=== PATIENT | female | born 1990 | race Caucasian/White ===

== ENCOUNTER 2019-01-07 12:37 | Observation (INO) | payer OTHER, SELFPAY ==
[2019-01-07] VITALS (18 sets, daily range): BP systolic 122–151; BP diastolic 77–118; PULSE 56–93; RESP 7–17; TEMP 36.1–37.3; O2SAT 85–100; BMI 27.4; BMI 26.9
--- NOTE | 2019-01-07 | PATH_ITS ---
[facility] Accession Number: [id number] . 01 Material submitted: . appendix - APPENDIX . 02 Diagnosis: Appendix: Acute appendicitis. MRV/01/09/2019 . 02 Electronically signed: . Dwight Cotto MD, Pathologist NPI- [id number] . 01 Gross description: . Received in formalin, labeled with the patient's name and appendix, is a 7 cm in length by 0.8 cm in diameter intact mendieta-brown appendix. The attached mendieta-brown mesoappendix measures 5.0 x 1.9 x 1.5 cm. The serosa is focally hemorrhagic and no perforation is noted. Sectioning reveals a lumen measuring 0.3 cm in maximal diameter with mendieta-brown mucosa. No fecalith is identified within the lumen. The resection margin is inked black, and players club representative sections are submitted as follows: A1 - bisected tip, cross-section of proximal margin, and additional cross-sections. (NEREYDA:[id number]) /MRV . 02 Pathologist provided ICD-10: K35.80 . 02 CPT . 539864 Performed at: 01 [facility] [address] [facility], [place], [place] [id number] MD Leonides De Guzman MD Phone: [phone] Performed at: 02 [facility] [address] [place], [place] [id number] MD Sharona Franco MD Phone: [phone]
[2019-01-07 13:02] LABS: Bacteria Urine None Seen
[2019-01-07 13:19] LABS: RBC Urine 5-10/HPF (0-5/HPF)
[2019-01-07 13:20] LABS: Culture Indicated Urine Cult Not Indicated; Squamous Epithelial Cell Urine 0-1 /HPF (0-5/HPF); WBC Urine 0-1/HPF (0-5/HPF)
--- NOTE | 2019-01-07 13:20 | ED_ITS ---
HPI - Abdominal Pain General Chief Complaint: Abdominal Pain Stated Complaint: rt side abominal pain Time Seen by Provider: 01/07/19 13:20 Source: patient Mode of arrival: ambulatory Limitations: no limitations History of Present Illness HPI narrative: Otherwise healthy 28-year-old female here for evaluation of right lower quadrant abdominal pain. Patient states that it started with right upper quadrant abdominal pain 2 days ago. She initially thought that it was ?gas? Has had a bowel movement since then which did not change any of her pain. No urinary symptoms. has very irregular menstrual cycles and is not on any sort of control. No prior abdominal surgeries. No vomiting. No fevers. Related Data Home Medications Medication Instructions Recorded Confirmed No Known Home Medications 01/07/19 01/07/19 Allergies Allergy/AdvReac Type Severity Reaction Status Date / Time No Known Drug Allergies Allergy Verified 01/07/19 12:57 Review of Systems Constitutional Denies body ache(s), Denies chills and Denies fever(s) Cardiovascular Denies chest pain and Denies dyspnea Respiratory Denies dyspnea Gastrointestinal Gastrointestinal: Reports abdominal pain, Denies change in stool character, Denies constipation, Denies nausea and Denies vomiting Genitourinary Denies dysuria, Denies pelvic pain and Denies vaginal discharge Integumentary/Breasts Denies rash Hematologic/Lymphatic Denies easy bleeding and Denies easy bruising [facility] Medical History Healthy adult (Acute) Social History household members: spouse Smoking Status: Never smoker Social History household members: spouse Smoking Status: Never smoker Exam Initial Vital Signs Initial Vital Signs: Vital Signs Temperature 98.1 F 01/07/19 12:52 Pulse Rate 79 01/07/19 12:52 Respiratory Rate 16 01/07/19 12:52 Blood Pressure 125/83 01/07/19 12:52 Pulse Oximetry 100 01/07/19 12:52 Const General: cooperative, comfortable, well developed, well groomed and No acute distress Orientation: alert, awake and oriented x3 HENMT Head: normal to inspection and normocephalic Resp Effort & Inspection: normal respiratory effort Auscultation: clear to auscultation bilaterally Cardio Rate: regular rate Rhythm: regular rhythm GI Inspection: non-distended Palpation: soft, No firm and tender (Right lower quadrant abdominal pain without rebound or guarding) Skin Lesions: no lesions Rashes: no rashes Neuro General: alert, awake and oriented x3 Extrem General: normal to inspection and capillary refill normal Psych Appearance: grossly normal and well kempt Course Orders Ordered: ED Orders 01/07/19 12:58 Urine Microscopic Stat 01/07/19 13:25 Complete Blood Count AUTO DIFF Stat Comprehensive Metabolic Panel Stat Lipase Stat 01/07/19 14:20 CT abdomen pelvis w con Stat 01/07/19 15:53 Education, smoking cessation ONGOING 01/07/19 17:46 Wound Culture and Gram Stain Routine Fentanyl (Sublimaze) 50 mcg IV Q5MIN PRN PRN Reason: Pain, Moderate (4-6) Hydromorphone HCl (Dilaudid) 0.5 mg IV Q5MIN PRN PRN Reason: Pain, Moderate (4-6) Sodium Chloride (Normal Saline 0.9%) 1,000 mls @ 125 mls/hr IV CONT EMY Last Infusion: 01/07/19 15:52 Dose: 125 mls/hr Admin: 01/07/19 15:02 Dose: 125 mls/hr Lactated Ringer's (Lactated Ringers) 1,000 mls @ 42 mls/hr IV CONT EMY Metoclopramide HCl (Reglan) 10 mg IV NOW PRN PRN Reason: Nausea And Vomiting Ondansetron HCl (Zofran) 4 mg IV NOW PRN PRN Reason: Nausea And Vomiting Discontinued Medications Sodium Chloride (Normal Saline 0.9%) 1,000 mls @ 1,000 mls/hr IV BOLUS ONE Stop: 01/07/19 14:30 Last Infusion: 01/07/19 15:25 Dose: 0 mls/hr Infusion: 01/07/19 15:03 Dose: 0 mls/hr Infusion: 01/07/19 14:54 Dose: 1,000 mls/hr Infusion: 01/07/19 14:22 Dose: 0 mls/hr Admin: 01/07/19 13:45 Dose: 1,000 mls/hr Piperacillin/Tazobactam/Dextrose (Zosyn) 3.375 gm in 50 mls @ 100 mls/hr IV NOW ONE Stop: 01/07/19 15:28 Last Infusion: 01/07/19 15:52 Dose: 0 mls/hr Admin: 01/07/19 15:22 Dose: 100 mls/hr Morphine Sulfate (Morphine) 4 mg IV NOW ONE Stop: 01/07/19 14:56 Last Admin: 01/07/19 15:03 Dose: 4 mg Vital Signs - 8 hr 01/07/19 12:52 01/07/19 16:00 01/07/19 16:24 Temperature 98.1 F 97.8 F 98.2 F Pulse Rate 79 69 72 Respiratory Rate 16 16 16 Blood Pressure 125/83 125/77 122/81 Pulse Oximetry 100 96 100 MDM - Abdominal Pain Lab Data Attestation: I reviewed the patient's lab results. Result diagrams: 01/07/19 13:25 01/07/19 13:25 Lab Results 01/07/19 01/07/19 01/07/19 Range/Units 12:58 13:25 13:25 WBC 8.1 (4.5-11.0) X10^3/uL RBC 4.12 (4.0-5.2) X10^6/uL Hgb 13.5 (12.0-16.0) g/dL Hct 39.2 (36-46) % MCV 95.1 (80-100) fL MCH 32.8 (26-34) PG MCHC 34.5 (30-36) % RDW 12.8 (11.6-14.8) % Plt Count 322 (150-400) X10^3/uL Neut % (Auto) 63.4 (50-75) % Lymph % (Auto) 25.7 (25-40) % Dukes % (Auto) 8.0 (3-14) % Eos % (Auto) 2.6 (2-4) % Baso % (Auto) 0.3 (0-2) % Neut # (Auto) 5100 (5689-9739) /uL Lymph # (Auto) 2100 (0354-7923) /uL Dukes # (Auto) 600 (0-900) /uL Eos # (Auto) 200 (0-450) /uL Baso # (Auto) 0 (0-100) /uL Sodium 139 (137-145) mmol/L Potassium 3.7 (3.4-5.1) mmol/L Chloride 102 (98-107) mmol/L Carbon Dioxide 28 (22-32) mmol/L BUN 12 (7-17) mg/dL Creatinine 0.80 (0.52-1.04) mg/dL Estimated GFR > 60.0 (>60) mL/min BUN/Creatinine Ratio 15.0 (6-22) Glucose 93 (70-100) mg/dL Calcium 9.3 (8.4-10.2) mg/dL Total Bilirubin 0.6 (0.2-1.3) mg/dL AST 30 (14-36) IU/L ALT 44 (9-52) IU/L Alkaline Phosphatase 56 (38-126) U/L Total Protein 8.2 (6.3-8.2) g/dL Albumin 4.5 (3.5-5.0) g/dL Globulin 3.7 (1.7-4.1) g/dL Albumin/Globulin Ratio 1.2 (1.0-2.8) Lipase 145 (23-300) U/L Urine RBC 5-10/hpf H (0-5/HPF) Urine WBC 0-1/hpf (0-5/HPF) Ur Squamous Epith Cells 0-1 /hpf (0-5/HPF) Urine Bacteria None seen (None) Ur Culture Indicated? Cult not indicated Point of care testing: Point of Care Testing Test Results Negative Urine Dip Bedside Urine Glucose Negative Bedside Urine Bilirubin - Negative Bedside Urine Ketone - Negative Urine Specific [place] 1.015 Bedside Urine Occult Blood + Bedside Urine pH 7.0 Bedside Urine Protein - Negative Bedside Urine Urobilinogen - Negative Bedside Urine Nitrite - Negative Bedside Urine Leukocytes - Negative Esterase Imaging Data CT scan - abdomen: Radiologist's impression: [address] [address] [address] Scan Report Signed Patient: Khushboo Oshea AnneMR#: [id number] : 1990Acct:[id number] Age/Sex: 28 FDate of Service: 01/07/19 Loc: ED Accession Number: [id number] Procedure: CT abdomen pelvis w con Ordering Provider: Robert Devlin D.O. PROCEDURE: CT ABDOMEN PELVIS W CON INDICATIONS: right-sided abdominal pain TECHNIQUE: After the administration of intravenous contrast, 5 mm thick sections acquired from the diaphragm to the symphysis. 5 mm coronal and sagittal reformats were acquired. For radiation dose reduction, the following was used: automated exposure control, adjustment of mA and/or kV according to patient size. COMPARISON: None. FINDINGS: Image quality: Excellent. ABDOMEN: Lung bases: Lung bases are clear. Heart size is normal. Bilateral breast implants are grossly intact. Solid organs: Liver is normal in size and enhancement. Hepatic steatosis is seen. Gallbladder is within normal limits. Biliary system is non dilated. Pancreas enhances normally. Spleen is normal in size and enhancement. No adrenal nodules. Kidneys demonstrate normal size and enhancement, without hydronephrosis. Peritoneum and bowel: There is no evidence of bowel obstruction. Appendix is visualized in right lower quadrant abdomen and measures 1 cm in diameter with appendiceal wall thickening and hyperemia. There is also suggestion of mild periappendiceal fat stranding. No abscess collection. No other area of abnormal bowel wall thickening. No free fluid or free air. Nodes and vessels: No retroperitoneal or mesenteric adenopathy by size criteria. Small lymph nodes are seen scattered in right lower quadrant mesentery. Aorta and inferior vena cava are normal in size. Miscellaneous: No ventral hernias. PELVIS: Genitourinary: Bladder wall thickness is normal. Miscellaneous: No inguinal hernias or adenopathy. Bones: No suspicious bony lesions. No vertebral body compression fractures. IMPRESSION: 1. Finding is suggestive of acute appendicitis. No evidence of perforation or abscess collection. No bowel obstruction. No free fluid or free air. 2. Hepatic steatosis. Dictated by: Herbie Rosas M.D. on 01/07/2019 at 14:39 Approved by: Herbie Rosas M.D. on 01/07/2019 at 14:41 [facility] Narrative Medical decision making narrative: Patient with a fairly benign abdominal exam. Is afebrile however CT scan is consistent with acute appendicitis. She does have right lower quadrant abdominal pain. Her last meal was at 1000 hours this morning. I discussed the case with Dr. Patterson with General surgery who will take the patient to the operating room. I discussed the CT findings with the patient and also the need for operative treatment. Antibiotics were ordered. The patient expressed understanding and agreement plan. Discharge Plan Departure Patient Disposition: Admitted As Inpatient Clinical Impression: Acute appendicitis Qualifiers: Acute appendicitis type: with localized peritonitis Appendicitis gangrene pr esence: without gangrene Appendicitis perforation presence: without perforation Appendicitis abscess presence: without abscess Qualified Code(s): K35.30 - Acute appendicitis with localized peritonitis, without perforation or gangrene Discharge Date/Time: 01/07/19 15:52 Interventions: ED Discharge Assessment Last Done: 01/07/19 15:52 Admit Date/Time: 01/07/19 15:20 Admit Provider: Kang Patterson
[2019-01-07 13:45] LABS: Add Manual Diff / Slide Review NO; Basophils Absolute Auto 0 /uL (0-100); Basophils Percent Auto 0.3 % (0-2); Eosinophils Absolute Auto 200 /uL (0-450); Eosinophils Percent Auto 2.6 % (2-4); Hematocrit 39.2 % (36-46); Hemoglobin 13.5 g/dL (12.0-16.0); Lymphocytes Absolute Auto 2100 /uL (1100-4500); Lymphocytes Percent Auto 25.7 % (25-40); Mean Corpuscular HGB Conc 34.5 % (30-36); Mean Corpuscular Hemoglobin 32.8 PG (26-34); Mean Corpuscular Volume 95.1 fL (80-100); Monocytes Absolute Auto 600 /uL (0-900); Neutrophils Absolute Auto 5100 /uL (1500-7000); Neutrophils Percent Auto 63.4 % (50-75); Platelet Count 322 X10^3/uL (150-400); Red Blood Cell Count 4.12 X10^6/uL (4.0-5.2); Red Cell Distribution Width 12.8 % (11.6-14.8); White Blood Cell Count 8.1 X10^3/uL (4.5-11.0)
[2019-01-07] MEDS: SODIUM CHLORIDE 0.9% 1,000 ML 1000 ML IV (13:45)
[2019-01-07 14:05] LABS: Alanine Aminotransferase 44 IU/L (9-52); Albumin 4.5 g/dL (3.5-5.0); Albumin Globulin Ratio 1.2 (1.0-2.8); Alkaline Phosphatase 56 U/L (38-126); Aspartate Aminotransferase 30 IU/L (14-36); Bilirubin Total 0.6 mg/dL (0.2-1.3); Blood Urea Nitrogen 12 mg/dL (7-17); Calcium 9.3 mg/dL (8.4-10.2); Carbon Dioxide 28 mmol/L (22-32); Chloride 102 mmol/L (98-107); Estimated Glomerular Filt Rate > 60.0 mL/min (>60); Globulin 3.7 g/dL (1.7-4.1); Glucose 93 mg/dL (70-100); HEMOLYSIS < 15 (0-50); Lipase 145 U/L (23-300); Potassium 3.7 mmol/L (3.4-5.1); Sodium 139 mmol/L (137-145); Total Protein 8.2 g/dL (6.3-8.2)
--- NOTE | 2019-01-07 14:20 | DI.CT.S_ITS ---
PROCEDURE: CT ABDOMEN PELVIS W CON INDICATIONS: right-sided abdominal pain TECHNIQUE: After the administration of intravenous contrast, 5 mm thick sections acquired from the diaphragm to the symphysis. 5 mm coronal and sagittal reformats were acquired. For radiation dose reduction, the following was used: automated exposure control, adjustment of mA and/or kV according to patient size. COMPARISON: None. FINDINGS: Image quality: Excellent. ABDOMEN: Lung bases: Lung bases are clear. Heart size is normal. Bilateral breast implants are grossly intact. Solid organs: Liver is normal in size and enhancement. Hepatic steatosis is seen. Gallbladder is within normal limits. Biliary system is non dilated. Pancreas enhances normally. Spleen is normal in size and enhancement. No adrenal nodules. Kidneys demonstrate normal size and enhancement, without hydronephrosis. Peritoneum and bowel: There is no evidence of bowel obstruction. Appendix is visualized in right lower quadrant abdomen and measures 1 cm in diameter with appendiceal wall thickening and hyperemia. There is also suggestion of mild periappendiceal fat stranding. No abscess collection. No other area of abnormal bowel wall thickening. No free fluid or free air. Nodes and vessels: No retroperitoneal or mesenteric adenopathy by size criteria. Small lymph nodes are seen scattered in right lower quadrant mesentery. Aorta and inferior vena cava are normal in size. Miscellaneous: No ventral hernias. PELVIS: Genitourinary: Bladder wall thickness is normal. Miscellaneous: No inguinal hernias or adenopathy. Bones: No suspicious bony lesions. No vertebral body compression fractures. IMPRESSION: 1. Finding is suggestive of acute appendicitis. No evidence of perforation or abscess collection. No bowel obstruction. No free fluid or free air. 2. Hepatic steatosis. Dictated by: Herbie Rosas M.D. on 01/07/2019 at 14:39 Approved by: Herbie Rosas M.D. on 01/07/2019 at 14:41
[2019-01-07] MEDS: SODIUM CHLORIDE 0.9% 1,000 ML 125 ML IV (15:02)
[2019-01-07] MEDS: MORPHINE 4 MG/ML INJ IV (15:03)
[2019-01-07] MEDS: PIPERACILLIN-TAZO 3.375 GM/50 ML FROZ.PIGGY IV (15:22)
--- NOTE | 2019-01-07 15:58 | P.HP_ITS ---
History of Present Illness Date Patient Seen: 01/07/19 Time Patient Seen: 15:55 Chief complaint: rt side abominal pain Narrative: 28-year-old white female developed abdominal pain at home this morning. The pain was in the upper abdomen and then migrated in a classical fashion to the right lower quadrant of the abdomen. As the pain became more intense she came to the emergency department at [facility]. She has a normal white cell count. CT scan of the abdomen and pelvis how ever reveals acute uncomplicated appendicitis with no abscess or rupture noted. Patient History Social History Smoking Status: Never smoker Family & Social History Safety & Behavioral: Feels Safe in Current Yes Environment Been Physically Hurt or No Threatened By a Person Tobacco & Substance use: Smoking Status Never smoker alcohol intake frequency a few times a week Substance Use Type does not use Meds Home Medications Medication Instructions Recorded Confirmed Type No Known Home Medications 01/07/19 01/07/19 History Allergies Allergy/AdvReac Type Severity Reaction Status Date / Time No Known Drug Allergies Allergy Verified 01/07/19 12:57 Review of Systems Review of Systems All systems reviewed & are unremarkable except as noted in HPI and below Exam Vital Signs (past 8 hours): - 01/07/19 12:52 Temperature 98.1 F Pulse Rate 79 Respiratory Rate 16 Blood Pressure 125/83 Pulse Oximetry 100 Oxygen Delivery Method Room Air Narrative Exam Narrative: Ears nose and throat are normal lungs are clear with no rales or whee zes heart regular rhythm no murmur abdomen is soft in the upper quadrants however the right lower quadrant is exquisitely tender with guarding and rebound tenderness. No masses palpated. The remaining physical is unremarkable. Objective Labs Result Diagrams: 01/07/19 13:25 01/07/19 13:25 Labs: Laboratory Results - last 24 hr 01/07/19 01/07/19 01/07/19 12:58 13:25 13:25 WBC 8.1 RBC 4.12 Hgb 13.5 Hct 39.2 MCV 95.1 MCH 32.8 MCHC 34.5 RDW 12.8 Plt Count 322 Neut % (Auto) 63.4 Lymph % (Auto) 25.7 Jennings % (Auto) 8.0 Eos % (Auto) 2.6 Baso % (Auto) 0.3 Neut # (Auto) 5100 Lymph # (Auto) 2100 Jennings # (Auto) 600 Eos # (Auto) 200 Baso # (Auto) 0 Sodium 139 Potassium 3.7 Chloride 102 Carbon Dioxide 28 BUN 12 Creatinine 0.80 Estimated GFR > 60.0 BUN/Creatinine Ratio 15.0 Glucose 93 Calcium 9.3 Total Bilirubin 0.6 AST 30 ALT 44 Alkaline Phosphatase 56 Total Protein 8.2 Albumin 4.5 Globulin 3.7 Albumin/Globulin Ratio 1.2 Lipase 145 Urine RBC 5-10/hpf H Urine WBC 0-1/hpf Ur Squamous Epith Cells 0-1 /hpf Urine Bacteria None seen Ur Culture Indicated? Cult not indicated Assessment & Plan Assessment & Plan narrative: Patient clearly has uncomplicated acute appendicitis. She has been given intravenous antibiotic therapy. She will have an urgent appendectomy. Patient understands the nature of her illness and agrees to the plan and upcoming surgery.
--- NOTE | 2019-01-07 16:51 | PC.NURSE ---
1600: Patient brought from ER, settled into room. Shortly after, OR Nurses here to pick her up for surgery. Belongings placed in closet, IV saline locked to left wrist.
--- NOTE | 2019-01-07 17:30 | SUR.PREOP ---
Brea and phone given to pt's .
[2019-01-07] MEDS: BUPIVACAINE 0.5% W/ EPI (PF) VIAL 30 ML INJ (17:49)
[2019-01-07] MEDS: SODIUM CHLORIDE IRRIG SOLUTION 1,000 ML, BACITRACIN 50,000 UNIT IRR (17:49)
[2019-01-07] MEDS: NEOMYCIN/POLYMYXIN/BACITRA UD OINT 1 EACH TOP (17:50)
--- NOTE | 2019-01-07 18:11 | PM.OP.1 ---
Operative Date/Time/Diagnoses Date of procedure: 01/07/19 Time of procedure: 18:11 Pre-op diagnosis: Acute uncomplicated appendicitis Post-op diagnosis: same Procedure & Clinicians Procedure: Appendectomy Same procedure as scheduled: Yes Surgeon: Kang Patterson Click Yes if Unassisted: Yes Anesthesia Type: General Operative Notes Findings: Acute nonruptured appendicitis Closure Type: primary Specimen(s): other Estimated Blood Loss (mL): 50 Blood products transfused: none Procedure in detail: Patient was given a general general endotracheal anesthetic prepped and draped in a sterile fashion with exposure of the lower abdomen and properly identified during surgical pause. Standard Dm-Esdras incision was made over McBurney's point to the oblique muscles were split in the grid iron fashion so as to expose the peritoneum which was elevated and entered avoiding injury to the underlying structures. The cecum was rotated into the wound. The appendix was behind the cecum retro cecal. It was mobilized and elevated the mesoappendix was divided over clamps the vessels were ligated with 2 0 Vicryl ties and there was excellent hemostasis the base the appendix was divided over a TA 30? staple line which was secure and intact. The appendix was removed and cultured. Pelvis irrigated with copious sterile saline with bacitracin. There was no bleeding or any evidence of purulence. The peritoneum closed with running 2 0 Vicryl. the oblique fascia closed with 1. Monocryl. the subcu irrigated with bacitracin saline. the skin stapled after local anesthesia was administered. Procedure was very well tolerated. Complications: none Condition: stable Disposition: PACU
--- NOTE | 2019-01-07 18:33 | SUR.PHASEI ---
Pt teary. Board Setter equal, able to move zia feet, and was able to state her name. Abd toni cdi
[2019-01-07] MEDS: HYDROMORPHONE 2 MG INJ 0.5 MG IV ×4 (18:46→19:10)
[2019-01-07] MEDS: BENZOCAINE/MENTHOL 1 LOZ PKT 1 EACH PO (18:56)
--- NOTE | 2019-01-07 18:56 | SUR.PHASEI ---
Pt stated her sore throat makes it hard to breath. VS stable. Throat lozenge offered and provided. Pt tolerating ice chips.
--- NOTE | 2019-01-07 19:00 | SUR.PHASEI ---
Pt reported pain improving a little bit.
--- NOTE | 2019-01-07 19:03 | SUR.PHASEI ---
Pt reported both throat pain and breathing improved with lozenge
--- NOTE | 2019-01-07 19:09 | SUR.PHASEI ---
Report called to Rita Suazo
--- NOTE | 2019-01-07 19:19 | SUR.PHASEI ---
Pt reported feeling like she had a panic attack, stated anxiety has improved. No longer teary.
--- NOTE | 2019-01-07 19:42 | SUR.PHASEI ---
Pt reported pain 5/10. Transferred to the floor. Report to Rita. Cynthia muñoz cdi. VS stable. IV saline locked.
[2019-01-07] MEDS: OXYCODONE/ACETAMINOPHEN 5/325 TABLET 1 TAB PO (22:06)
[2019-01-07] MEDS: DEXTROSE 5%-0.45% NS 1,000 ML 100 ML IV (22:07)
--- NOTE | 2019-01-07 23:44 | PC.NURSE ---
Post-op note: Leigh Lepe transfered from PACU, has been Ox3 with stable VS. Drsg to right abdomen is dry/intact with scant spot of shadow drainage which PUBLIC HEALTH DIETITIAN outlined at time of transfer to 221. Abdomen soft. Denies nausea, tolerating liquids and later a general diet, boyfriend brought her dinner. Reports increased pain 6/10 after ambulating to BR to void. Discussed splinting technique if she needs to cough/sneeze/laugh, pt expressed understanding. Medicated with 1 tab Percocet, talked about medications ordered by Surgegina and instructed her to call if Percocet does not relieve her pain. Since then she has been observed dozing. Boyfriend rooming in with her tonight. IVF infusing to LAC PIV with no difficulty, sometimes pump beeping due to AC position, folded washcloth & mesh stockinette applied to secure IV site, since then has not alarmed at all. Instructed patient to call for any needs/concerns, oriented to room & call button. Report given to Jordyn GROSSMAN RN.
[2019-01-08 00:30] VITALS: BP 118/71; PULSE 77; RESP 16; TEMP 36.7; O2SAT 98
[2019-01-08] MEDS: KETOROLAC 30 MG/ML VIAL IV ×2 (00:34→05:41)
[2019-01-08] MEDS: OXYCODONE/ACETAMINOPHEN 5/325 TABLET 1 TAB PO ×2 (03:36→08:05)
[2019-01-08 05:30] VITALS: BP 119/72; PULSE 70; RESP 16; TEMP 36.4; O2SAT 99
[2019-01-08 08:00] VITALS: BP 136/76; PULSE 72; RESP 16; TEMP 36.6; O2SAT 97
[2019-01-08] MEDS: INFLUENZA VACCINE 0.5 ML SYRINGE IM (08:05)
--- NOTE | 2019-01-08 09:13 | PM.PN.1 ---
Subjective Date Patient Seen: 01/08/19 Time Patient Seen: 09:14 Interval history: Patient had acute appendicitis with an open appendectomy done last night to this morning she is afebrile she is feeling much better than before surgery she is tolerating a solid diet with no nausea and vomiting. She will be discharged today. Full discharge instructions have been given including bathing no heavy lifting prescription for Percocet was given Exam Vital Signs (past 8 hours): - 01/08/19 05:30 01/08/19 08:00 Temperature 97.5 F L 98 F Pulse Rate 70 72 Respiratory Rate 16 16 Blood Pressure 119/72 136/76 Pulse Oximetry 99 97 Oxygen Delivery Method Room Air Oxygen Flow Rate 0 Narrative Exam Narrative: Patient is afebrile Abdomen is soft minimal tenderness around the incision. dressing is dry. Objective Labs Result Diagrams: 01/07/19 13:25 01/07/19 13:25 Labs: Laboratory Results - last 24 hr 01/07/19 01/07/19 01/07/19 12:58 13:25 13:25 WBC 8.1 RBC 4.12 Hgb 13.5 Hct 39.2 MCV 95.1 MCH 32.8 MCHC 34.5 RDW 12.8 Plt Count 322 Neut % (Auto) 63.4 Lymph % (Auto) 25.7 [place]ult[place] % (Auto) 8.0 Eos % (Auto) 2.6 Baso % (Auto) 0.3 Neut # (Auto) 5100 Lymph # (Auto) 2100 [place] # (Auto) 600 Eos # (Auto) 200 Baso # (Auto) 0 Sodium 139 Potassium 3.7 Chloride 102 Carbon Dioxide 28 BUN 12 Creatinine 0.80 Estimated GFR > 60.0 BUN/Creatinine Ratio 15.0 Glucose 93 Calcium 9.3 Total Bilirubin 0.6 AST 30 ALT 44 Alkaline Phosphatase 56 Total Protein 8.2 Albumin 4.5 Globulin 3.7 Albumin/Globulin Ratio 1.2 Lipase 145 Urine RBC 5-10/hpf H Urine WBC 0-1/hpf Ur Squamous Epith Cells 0-1 /hpf Urine Bacteria None seen Ur Culture Indicated? Cult not indicated Assessment & Plan Assessment & Plan narrative: Patient is recovering nicely from an appendectomy done last night for acute uncomplicated appendicitis should be discharged today. Quality VTE Deep Vein Thrombosis/Pulmonary Embolism Present on Admission: No
--- NOTE | 2019-01-08 09:17 | P.DS_ITS ---
History of Present Illness Chief complaint: rt side abominal pain Narrative: 28-year-old white female developed abdominal pain at home this morning. The pain was in the upper abdomen and then migrated in a classical fashion to the right lower quadrant of the abdomen. As the pain became more intense she came to the emergency department at [facility]. She has a normal white cell count. CT scan of the abdomen and pelvis how ever reveals acute uncomplicated appendicitis with no abscess or rupture noted. Discharge Providers Date of admission: 01/07/19 15:20 Discharge Date: 01/08/19 Discharge provider: Kang Patterson MD Summary Discharge Diagnosis: Acute uncomplicated appendicitis Hospital Course: Patient came to the emergency room with abdominal pain was discovered to have acute appendicitis and underwent an open appendectomy last evening. She has done beautifully. She is tolerating a solid diet now. With no nausea vomiting. She has minimal abdominal discomfort which is controlled with 1 Percocet. She would like to go home and is discharged this morning. She will be seen in the clinic in a week to have her zoraida removed. Status at Discharge Cognitive/behavioral status at discharge: oriented Functional status at discharge: independent ambulation Overall status at discharge: patient is back to baseline Time Spent with Patient Less than 30 minutes Exam Vital Signs (past 8 hours): - 01/08/19 05:30 01/08/19 08:00 Temperature 97.5 F L 98 F Pulse Rate 70 72 Respiratory Rate 16 16 Blood Pressure 119/72 136/76 Pulse Oximetry 99 97 Oxygen Delivery Method Room Air Oxygen Flow Rate 0 Objective Labs Result Diagrams: 01/07/19 13:25 01/07/19 13:25 Labs: Laboratory Results - last 24 hr 01/07/19 01/07/19 01/07/19 12:58 13:25 13:25 WBC 8.1 RBC 4.12 Hgb 13.5 Hct 39.2 MCV 95.1 MCH 32.8 MCHC 34.5 RDW 12.8 Plt Count 322 Neut % (Auto) 63.4 Lymph % (Auto) 25.7 [place] % (Auto) 8.0 Eos % (Auto) 2.6 Baso % (Auto) 0.3 Neut # (Auto) 5100 Lymph # (Auto) 2100 [place] # (Auto) 600 Eos # (Auto) 200 Baso # (Auto) 0 Sodium 139 Potassium 3.7 Chloride 102 Carbon Dioxide 28 BUN 12 Creatinine 0.80 Estimated GFR > 60.0 BUN/Creatinine Ratio 15.0 Glucose 93 Calcium 9.3 Total Bilirubin 0.6 AST 30 ALT 44 Alkaline Phosphatase 56 Total Protein 8.2 Albumin 4.5 Globulin 3.7 Albumin/Globulin Ratio 1.2 Lipase 145 Urine RBC 5-10/hpf H Urine WBC 0-1/hpf Ur Squamous Epith Cells 0-1 /hpf Urine Bacteria None seen Ur Culture Indicated? Cult not indicated Discharge Plan Discharge Plan Patient Disposition: Home Discharge Med Rec/Prescriptions Prescriptions: New oxycodone-acetaminophen 5-325 mg Tablet 1 tab PO Q4HR PRN (Reason: Pain, Moderate (4-6)) Qty: 10 RF: 0 No Action No Known Home Medications RF: 0 Visit Report/Discharge Packet Instructions: DI for an Appendectomy, DI for Constipation Discharge Data Attending Provider: Kang Patterson Admit Date/Time: 01/07/19 15:20 Quality VTE Deep Vein Thrombosis/Pulmonary Embolism Present on Admission: No
--- NOTE | 2019-01-08 15:56 | CM.DANOTE ---
DCP/Assessment: Reviewed chart. Patient is a 28yr old female admitted under OBS status with abdominal pain. No PCP listed. Primary payor is 1) [employer]. Dr. Patterson is admitting provider. [employer] attempted to meet with patient to do assessment. Patient has already been discharged and had left the building at time of visit. No identified d/c planning needs. P: Home today. CLOVIS Meza Discharge Planning/Care Management CM Discharge Assessment Start: 01/08/19 15:55 Freq: Status: Active Protocol: Document 01/08/19 15:56 KJS (Rec: 01/08/19 15:56 KJS [id number]) Discharge Planning Assessment DPOA/Assigned Designee Name CLOVIS Meza Advance Directives? No History Provided By Medical Record Prior Living Arrangements House Household Members spouse Independent with ADL's Yes Is patient alert and oriented? Yes Barriers to Discharge No Discharge Plan Home Transportation Arrangement Family Referrals Initiated None needed Whiteboard Updated in Patient Room with No name and ext. # of Credit Risk Modeler Review Status In Process Next Review Type Continued Stay Review
== END 2019-01-08 10:45 | disposition home or self-care (01) ==
LOC: ED 15:17 → AC 15:22
PROVIDERS: Admitting Provider Surgery; Emergency Provider Emergency Medicine; Visit Provider Surgery
PROC: (CPT 44950; principal; 2019-01-07 19:00)
DX: K35.80 Unspecified acute appendicitis (principal); R10.31 Right lower quadrant pain; Z23 Encounter for immunization
CPT/HCPCS: 44950; 36591; 74177; 80053; 81003; 81015; 81025; 83690; 85025; 87070; 87075; 87077; 87186; 87205; 88304; 90471; 90656; 96361; 96365; 96375; 99219; 99284; G0378; J0330; J1100; J1170; J1885; J2270; J2405; J2543; J2704; J3010; Q2038; Q9967

== ENCOUNTER → 2020-04-24 12:04 | Outpatient (CLI) | payer OTHER, SELFPAY ==
[2019-01-15 09:57] VITALS: BMI 26.9
== END ==
PROVIDERS: Visit Provider Physician Assistant
DX: R30.0 Dysuria (principal)
CPT/HCPCS: 87077; 87086; 87186